=== PATIENT | male | born 1975 | race Two or more races ===

== ENCOUNTER 2025-07-03 12:43 | Emergency (ER) | payer MEDICARE, MEDICAID ==
[~2025-07-03] VITALS: Ht 170.2 cm; Wt 77.0 kg
--- NOTE | 2025-07-03 12:45 | Physician Documentation ---
History of Present Illness ~ Stated Complaint: EYE INFECTION Time Seen by MD: 13:12 HPI This is a 49-year-old gentleman who reports no past medical history presents for evaluation of bilateral eye redness that has been present for the last three days. He denies any eye discharge despite the very obvious green discharge in bilateral eyes. Denies any vision changes. Denies any pain or foreign body sensation. Denies headache. No known exposure to pinkeye/conjunctivitis. He denies any concerns for tobacco, alcohol or illicit substances use. Medication Reconciliation Allergies: Coded Allergies: No Known Allergies (Unverified , 07/03/25) Review of Systems ROS 10 point review of systems was performed and unless noted above in HPI is negative for acute process/complaint. Physical Exam Physical Exam Physical examination: GENERAL: Awake, alert, oriented, GCS 15, no apparent distress, non-toxic appearing, answers questions, follows commands appropriately. Examined in triage. Pressured speech. HEENT: Atraumatic, normocephalic, pupils equal, extraocular muscles intact Active gross movements, sclerae anicteric, mucus membranes moist, no stridor. NECK: Midline, no JVD CARDIOVASCULAR: Good skin perfusion without evidence of pallor, mottling. PULMONARY: Nonlabored, symmetric chest rise, no audible wheezing, no accessory muscle use, no respiratory distress, speaking in full sentences. GASTROINTESTINAL: Not distended. NEUROLOGIC: Lucid with normal mental status. Normal facial symmetry. Moves all extremities symmetrically and with purpose. No truncal ataxia. Speech is fluid without evidence of dysarthria or aphasia, no focal deficits appreciated. EXTREMITIES: Acute deformities Skin: warm, dry PSYCHIATRIC: Somewhat anxious affect, normal insight, normal concentration. Focused exam: Bilateral eye conjunctiva is injected, there is a green purulent discharge on bilateral eyes despite patient denying any discharge. No pain with a extraocular range of motion. No fixed dilated pupil. Anterior chamber is not shallow. No hypopyon or hyphema. No limbal involvement. Progress Results/Orders Results/Orders Vital Signs 07/03/25 12:50 Temp 97.9 Pulse 127 Resp 18 B/P (MAP) 158/105 Pulse Ox 98 O2 Flow Rate 0 Medical Decision Making Findings Facility Status: ED Holds, [facility] process The plan was discussed with the patient, who demonstrates clear understanding of the plan and is in agreement with the plan unless otherwise noted in the chart. All questions have been answered, all concerns were addressed unless otherwise documented. I was available throughout their ED stay for frequent reassessment and questions. Differential Diagnoses (considered and possible or likely): [Most likely bacterial conjunctivitis, less likely viral or allergic conjunctivitis, unlikely glaucoma, unlikely UV keratitis, no evidence of trauma to the globe, no evidence of iritis, no evidence of preseptal or orbital cellulitis.] ??Differential Diagnoses (considered and unlikely, not requiring evaluation currently): [See above] MDM Data Please see [facility] for the following: Independent Historians and external Records Review. Historian: [Patient] Independent Historians: ?[Record review] Medication Management: [Reviewed medication list] Social History and determinants: [Reviewed] Please see the body of the note for the following: Any independent interpretations of ECG, imaging studies. All vitals signs/haemodynamics, ordered tests were independently reviewed and interpreted by myself. Nursing triage complaint and vitals reviewed, additional nursing notes were reviewed as available and I agree unless otherwise noted or documented in contradiction in the chart Vital Signs: Independently reviewed Labs: Independently interpreted Imaging: Independently interpreted Old Medical Records: Independently reviewed, see [facility] for relevant summary and information Pulse Oximetry: [96%] interpreted as [normal on room air] by me Additionally notably showing: [Initially he is tachycardic. This improves with a rest alone.] Tests considered but not ordered include: [Hematologic workup and imaging has been considered but does not appear to be necessary given clinical nature of diagnosis] Social Determinants of Health Impact: Patient was evaluated in [facility] or [facility] [place] to healthcare due to below par ratio of patient to medical providers. [] Comorbid Conditions Impacting Present Evaluation and Care/Treatment: [None] Management Discussions with other Healthcare Providers: [None] Treatment and Disposition Medication Management (Given or considered): []. See EMR for details Consideration for Hospitalization/Escalation/Deescalation of Care: Admission for observation has been considered, [however the patient is able to tolerate p.o., their symptoms are controlled, they are able to rely on oral medications, and their chief complaint/diagnosis can be managed on outpatient basis.] ?ED Course:?[No clinical deterioration.] ?Shared decision making:?[Patient is hemodynamically stable for discharge home with follow with their primary care provider. [ ] Specific and cautious return precautions provided and discussed with full understanding. Any incidental findings were also discussed and follow up recommendations given. [] All questions answered. Patient/family were able to verbalize back return precautions. Patient/family agree to plan. Copies of imaging and laboratory studies were provided.] Code status:?FULL Please see the full Electronic Medical Record for full details of nursing documentation, medications list, other records of complete past medical history and conditions, vital signs, laboratory studies, and any radiologic study interpretations by radiologists. Portions of this note were completed using [employer] dictation software and as a result there may exist minor errors in spelling. I have reviewed elements of past family and social history and agree as included in note. Departure Disposition: 01 HOME / SELF CARE / HOMELESS Impression: Primary Impression: Bacterial conjunctivitis Condition: Stable Discharge Instructions: Bacterial Conjunctivitis, Adult, [id number] Referrals: NO PRIMARY CARE PROVIDER (PCP) Prescriptions Ciprofloxacin Hcl Ophth* (Ciloxan 0.35 Ophth Drops*) 2.5 Ml Bottle 2 DROP EACHEYE Q4HWA for 7 Days, #10 ML Prov: JUAN GALEANO DO 07/03/25 Education Educated: Patient Educated regarding: diagnosis, treatment, prognosis, need for follow up Signature Scribe Signature: No scribe Attestation: This note accurately reflects clinical decisions, work performed by myself, DO PIETRO Azevedo HEIDI L NP Jul 03, 2025 12:45 JUAN GALEANO DO Jul 03, 2025 13:19
[2025-07-03 12:50] VITALS: BP 158/105; PULSE 127; RESP 18; TEMP 97.9; O2SAT 98
[2025-07-03] MEDS ORDERED: CIPR2.5D21 EACHEYE (13:19)
== END 2025-07-03 13:38 | disposition home or self-care (01) ==
LOC: ER 12:44
DX: H10.89 Other conjunctivitis (principal)
CPT/HCPCS: 99283